=== PATIENT | female | born 2000 | race African-American/Black ===

== ENCOUNTER 2024-02-04 11:49 | Emergency (ER) | payer OTHER, SELFPAY ==
--- NOTE | 2024-02-04 14:00 | EDPHYS ---
Physician Documentation [facility] Name: Nicolette Santana Age: 23 yrs Sex: Female : 2000 Arrival Date: 02/04/2024 Time: 11:49 Bed DX3 Private MD: ED Physician Vandana Louise HPI: 02/03 12:52 This 23 yrs old Black Female presents to ER via Ambulatory with complaints of Suicidal sd2 Ideation. 12:52 23 yo F presents with CC of SI sent by [facility]. Reports she was there sd2 for a follow up and informed her provider that she had been having suicidal thoughts for a couple of weeks but did not have a plan or any intent. Reports increased work stressors. Reports prior suicide attempt taking OTC medications 12 years ago. Denies HI or AVH. . 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 - Infectious Disease History:: Denies. - Social history:: Smoking status: Patient denies any tobacco usage or history of. Patient/guardian denies using alcohol, street drugs. ROS: 12:52 Constitutional: Negative for fever, chills, and weight loss, Eyes: Negative for injury, sd2 pain, redness, and discharge, Cardiovascular: Negative for chest pain, palpitations, and edema, Respiratory: Negative for shortness of breath, cough, wheezing. Abdomen/GI: Negative for abdominal pain, nausea, vomiting, diarrhea. MS/Extremity: Negative for injury and deformity, Skin: Negative for injury, rash, and discoloration, Neuro: Negative for headache, numbness and tingling. Psych: Positive for depression, anxiety, suicide ideation, Negative for homicidal ideation, and hallucinations, Exam: 12:52 Constitutional: This is a well developed, well nourished patient who is awake, alert, sd2 and in no acute distress. Head/Face: Normocephalic, atraumatic. Eyes: EOMI, normal conjunctiva bilaterally Chest/axilla: Normal chest wall appearance and motion. Nontender with no deformity. Cardiovascular: Regular rate and rhythm with a normal S1 and S2. No gallops, murmurs, or rubs. 2+ distal pulses. Respiratory: Lungs have equal breath sounds bilaterally, clear to auscultation and percussion. No rales, rhonchi or wheezes noted. No increased work of breathing, no retractions or nasal flaring. Abdomen/GI: Soft, non-tender, with normal bowel sounds. No guarding or rebound. No evidence of tenderness throughout. Skin: Warm, dry with normal turgor. Normal color with no rashes, no lesions, and no evidence of cellulitis. MS/ Extremity: Pulses equal, no cyanosis. Neurovascular intact. Full, normal range of motion. Psych: Awake, alert, with orientation to person, place and time. Behavior, mood, and affect are within normal limits. Vital Signs: 12:08 BP 113 / 66; Pulse 79; Resp 16; Temp 97.1; Pulse Ox 100% on R/A; Weight 83.01 kg; iw Height 5 ft. 0 in. ; 14:15 BP 111 / 61; Pulse 71; Resp 17; Pulse Ox 100% ; ll1 12:08 Body Mass Index 35.74 (83.01 kg, 152.4 cm) iw MDM: 12:24 Patient medically screened. sd2 12:52 Differential diagnosis: drug withdrawal. acute psychotic break, depression, psychosis sd2 secondary to non-compliance, among others. Data reviewed: vital signs, nurses notes, lab test result(s), EKG. Management of patient was discussed with the following: Behavioral Health Provider: patient's psychiatrist at [facility], reports similar story and that they spoke with patient's mother who she lives with as well who had some concerns. 13:56 Historians other than the Patient: Parent: provides further hx see ED course. sd2 Counseling: I had a detailed discussion with the patient and/or guardian regarding the historical points, exam findings, and any diagnostic results supporting the discharge/admit diagnosis, the need for outpatient follow up, to return to the emergency department if symptoms worsen or persist or if there are any questions or concerns that arise at home. ED course: I had another in-depth discussion with the patient as well as her mother at bedside who has now arrived. The patient reports that the suicidal thoughts she has had have been fleeting and passive. She reports she does not have any of those thoughts at this time and that she was just going through a rough patch for the last couple of months. She does live at home with her mother who reports that she does not have concern for the patient harming herself. She reports the patient is very open and transparent with her and communicates well about her depression and how she is feeling. Her mom is very aware of the situation and will be able to continue to monitor it at home. She does not have access to any weapons or [id number] medications or any prescription medications aside from her own. The patient reports she has not had any plans or intent to harm herself for the last 12 years since her last attempt. She does not want to be medically cleared and have labs drawn or be seen by the mat team at this time and is not currently under an involuntary assisted order. Therefore, with her wishes and the safety plan to have in place with her mother, I will discharge her home at this time. She will continue to follow-up outpatient with her psychiatrist and her mom will make sure she does so as well and continues to stay compliant with her home medications. She was informed to return to the ER for speak to her mom or her psychiatrist immediately if her suicidal thoughts return or worsen or she has, with a plan or intent to harm herself or others.. 02/03 12:34 Order name: Suicide Precautions; Complete Time: 14:15 sd2 Administered Medications: No medications were administered Disposition Summary: 02/04/24 13:59 Discharge Ordered Problem: an acute exacerbation sd2 Symptoms: are resolved sd2 Condition: Stable sd2 Diagnosis - Suicidal ideations sd2 Followup: sd2 - With: Private Physician - When: 1 - 2 days - Reason: Recheck today's complaints, Continuance of care, Re-evaluation by your physician Discharge Instructions: - Discharge Summary Sheet sd2 - Suicidal Feelings: How to Help Yourself sd2 - Helping Someone Who is Suicidal sd2 - Stress, Adult sd2 Forms: - Medication Reconciliation Form sd2 - Antibiotic Education sd2 - Prescription Opioid Use sd2 - Patient Portal Instructions sd2 - Leadership Thank You Letter sd2 Signatures: Dispatcher [employer] Violet Eric RN RN Vandana Kc MD MD sd2 Corrections: (The following items were deleted from the chart) 12:35 12:35 CBC+H.LAB.BRZ ordered. EDMS EDMS 12:35 12:35 COMPREHENSIVE METABOLIC PANEL+C.LAB.BRZ ordered. EDMS EDMS 12:35 12:35 THYROID STIMULAT HORMONE+C.LAB.BRZ ordered. EDMS EDMS 12:35 12:35 ETHANOL+C.LAB.BRZ ordered. EDMS EDMS 12:35 12:35 SALICYLATE+C.LAB.BRZ ordered. EDMS EDMS 12:35 12:35 ACETAMINOPHEN+C.LAB.BRZ ordered. EDMS EDMS 12:35 12:35 Test, Urine+UC.LAB.BRZ ordered. EDMS EDMS 12:35 12:35 Urinalysis+U.LAB.BRZ ordered. EDMS EDMS 12:35 12:35 URINE DRUG SCREEN+UC.LAB.BRZ ordered. EDMS EDMS
--- NOTE | 2024-02-04 14:00 | ER ---
Nurse's Notes [facility] Name: Nicolette Santana Age: 23 yrs Sex: Female : 2000 Arrival Date: 02/04/2024 Time: 11:49 Bed DX3 Private MD: Diagnosis: Suicidal ideations Presentation: 02/03 12:08 Chief complaint: Patient states: has been having suicidal thoughts, told the doctor at [facility] and she told her to come here . pt denies a plan. Coronavirus screen: At this time, the client does not indicate any symptoms associated with coronavirus-19. Ebola Screen: No symptoms or risks identified at this time. Risk Assessment:. 12:08 Method Of Arrival: Ambulatory iw 12:08 Acuity: BELINDA 3 iw 12:11 Initial Sepsis Screen: Does the patient meet any 2 criteria? No. Patient's initial iw sepsis screen is negative. Does the patient have a suspected source of infection? No. Patient's initial sepsis screen is negative. Onset of symptoms was February 04, 2024. 12:38 Acuity: BELINDA 2 iw 14:18 Risk Assessment: Do you want to hurt yourself or someone else? Patient reports ll1 desire/thoughts of hurting themselves or someone else. Provider notified. Other: fleeting thoughts, no specific plan. 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 - Infectious Disease History:: Denies. - Social history:: Smoking status: Patient denies any tobacco usage or history of. Patient/guardian denies using alcohol, street drugs. Screenin:16 [facility] ED Fall Risk Assessment (Adult) History of falling in the last 3 months, ll1 including since admission No falls in past 3 months (0 pts) Confusion or Disorientation No (0 pts) Intoxicated or Sedated No (0 pts) Impaired Gait No (0 pts) Mobility Assist Device Used No (0 pt) Altered Elimination No (0 pt) Score/Fall Risk Level 0 - 2 = Low Risk Maintained a safe environment, Hourly rounding (assess needs \\T\\ fall precautionary measures) done. Abuse screen: Denies threats or abuse. Nutritional screening: No deficits noted. Tuberculosis screening: No symptoms or risk factors identified. Assessment: 12:39 Reassessment: Dr. Louise spoke with pt's doctor at [facility], will iw continue with psych workup. 14:15 General: Appears in no apparent distress. Behavior is calm, cooperative, appropriate ll1 for age. Pain: Denies pain. Neuro: No deficits noted. Respiratory: No deficits noted. Psych: 14:16 [place] Suicide Severity Screening: In the past month, have you wished you were ll1 or wished you could go to sleep and not wake up? Patient responds "yes." "In the past month, have you actually had any thoughts of killing yourself?" Patient responds "yes." "In your lifetime, have you ever done anything, started to do anything, or prepared to do anything to end your life?" Patient responds "yes.". Subjective: Having thoughts of suicide. Denies suicidal plan. Objective: Affect is appropriate. Interventions: Urine collected and sent for urine drug test. Safety Checks: Pt denies substance abuse. 14:17 Commitment: Patient will be a voluntary commitment. ll1 Vital Signs: 12:08 BP 113 / 66; Pulse 79; Resp 16; Temp 97.1; Pulse Ox 100% on R/A; Weight 83.01 kg; iw Height 5 ft. 0 in. ; 14:15 BP 111 / 61; Pulse 71; Resp 17; Pulse Ox 100% ; ll1 12:08 Body Mass Index 35.74 (83.01 kg, 152.4 cm) iw ED Course: 11:50 Patient arrived in ED. ra3 12:01 Vandana Louise MD is Attending Physician. sd2 12:10 Triage completed. iw 12:11 Arm band placed on. iw 14:15 No provider procedures requiring assistance completed. Patient did not have IV access ll1 during this emergency room visit. 14:18 Patient has correct armband on for positive identification. Provided Education on: ll1 return to ED as needed. Administered Medications: No medications were administered Medication: 14:18 VIS not applicable for this client. ll1 Outcome: 13:59 Discharge ordered by . jesse 14:17 Discharged to home ambulatory, ll1 14:17 Condition: stable 14:17 Discharge instructions given to patient, family, Instructed on discharge instructions, follow up and referral plans. Demonstrated understanding of instructions, follow-up care, 14:18 Patient left the ED. ll1 Signatures: Violet Collado RN GURJIT iw Pradeep Ledezma RN RN ll1 Vandana Louise MD MD sd2 Olga Galeano ra3 Corrections: (The following items were deleted from the chart) 12:12 12:08 Chief complaint: Patient states: has been having suicidal thoughts, told the doctor at [facility] and she told her to come here
[2024-02-04 14:54] VITALS: TEMP 97.1; O2SAT 100
[2024-02-04 14:56] VITALS: BP 111/61
== END 2024-02-04 14:18 | disposition home or self-care (01) ==
LOC: ER 11:49
DX: R45.851 Suicidal ideations (principal); F32.A Depression, unspecified; F41.9 Anxiety disorder, unspecified
CPT/HCPCS: 99284